=== PATIENT | female | born 1950 | race Caucasian/White ===

== ENCOUNTER 2020-10-17 11:19 | Emergency (ER) | payer OTHER, SELFPAY ==
[2020-10-17 11:26] VITALS: BP 124/69; PULSE 69; RESP 18; TEMP 36.9; O2SAT 96
--- NOTE | 2020-10-17 11:38 | ED.URI ---
HPI - URI/Sore Throat General Chief Complaint: Upper Respiratory Infection Stated Complaint: sore throat Time Seen by Provider: 10/17/20 11:38 Source: patient Mode of arrival: ambulatory Limitations: no limitations History of Present Illness HPI Narrative: Fariba Medina is a 70 yo female with a PMH of high cholesterol, HTN, COPD, lupus, arhritis, who comes to [facility] complaining of sore throat and congestion since Saturday she has tried cough drops and [id number] medication without improvement. Related Data Home Medications Medication Instructions Recorded Confirmed atorvastatin 10 mg tablet 10 mg PO DAILY 01/01/20 10/17/20 bisoprolol fumarate 5 mg tablet 5 mg PO DAILY 01/01/20 10/17/20 cholecalciferol (vitamin D3) PO 01/01/20 fluticasone 250 mcg-salmeterol 50 1 inhalation INHALATION BID 01/01/20 10/17/20 mcg/dose blistr powdr for inhalation tiotropium bromide 2.5 2 inhalation INHALATION QAM 01/01/20 10/17/20 mcg/actuation mist for inhalation hydroxychloroquine 200 mg tablet 200 mg PO BID 04/12/20 10/17/20 Allergies Allergy/AdvReac Type Severity Reaction Status Date / Time No Known Allergies Allergy Verified 04/12/20 08:00 Review of Systems Review of Systems: Narrative: CONSTITUTIONAL: Denies fever, chills, sweats. EYES: Denies visual changes, redness, discharge. ENT: Denies rhinorrhea,has congestion,has sore throat, otalgia. CARDIOVASCULAR: Denies chest pain, palpitations, edema. RESPIRATORY: Denies dyspnea, wheezing, cough GASTROINTESTINAL: Denies abdominal pain, nausea, vomiting, diarrhea. GENITOURINARY: Denies dysuria, hematuria, abnormal discharge SKIN: Denies rash or itching. NEUROLOGIC: Denies numbness, or focal weakness. PSYCHIATRIC: Denies anxiety or depression. [facility] Past Medical History Medical History Arthritis COPD (chronic obstructive pulmonary disease) Lupus Seronegative rheumatoid arthritis of multiple sites (~11/2019) Surgical History Surgical History H/O right knee surgery Family History Family History Mother Lupus Father COPD (chronic obstructive pulmonary disease) Dementia Grandparent Heart disease Sibling No problems noted. Social History Social History Smoking packs per day: 1 Smoking cigarettes per day: 20.0 Years smoked: 40 Smoking pack-years: 40.00 Smoking status: Current every day smoker Tobacco type: cigarettes Alcohol intake: current Gender identity (if verbalized by the patient): Female Comments At time of signature, I agree with nursing past medical, surgical, social and family history. There is no relevant family history pertinent to the presenting complaint. Exam Narrative: Exam Narrative: GENERAL: This is a well-nourished, well-developed patient, in moderate distress. HEAD: normocephalic, atraumatic. EYES: Sclera clear/white. Vision is grossly intact. EARS: External ears normal, a. Hearing grossly intact. NOSE: External nose normal without nasal discharge, nares without redness, no rhinorrhea. THROAT: Mucous membranes moist, posterior pharynx erythema NECK: Neck supple, tender submandibular lymph nodes right worse than left CARDIOVASCULAR: Regular rate and rhythm without murmurs, gallops, or rubs. RESPIRATORY: Wheezing to auscultation, diffuse wheezing all cheung. Breath sounds equal bilaterally. No rales, or rhonchi. GASTROINTESTINAL: Abdomen soft, non-tender, SKIN: warm, intact with no suspicious lesions or rash, good texture and turgor. NEURO: awake, alert, and oriented to person, place and time. There were no obvious focal neurologic abnormalities. Steady gait EXTREMITIES: Normal range of motion. BACK: Nontender without deformity Course Course Emergency Course: Patient comes to [facility]
== END 2020-10-17 12:00 | disposition home or self-care (01) ==
PROVIDERS: Emergency Provider Nurse Practitioner; PCP Internal Medicine
DX: R05 Cough (principal); J02.9 Acute pharyngitis, unspecified; F17.210 Nicotine dependence, cigarettes, uncomplicated; M19.90 Unspecified osteoarthritis, unspecified site; J44.9 Chronic obstructive pulmonary disease, unspecified; M32.9 Systemic lupus erythematosus, unspecified; E78.00 Pure hypercholesterolemia, unspecified; I10 Essential (primary) hypertension; M06.09 Rheumatoid arthritis without rheumatoid factor, multiple sites
CPT/HCPCS: 87081; 87880; 99213; G0463

== ENCOUNTER 2022-04-03 12:20 | Emergency (ER) | payer MEDICARE, SELFPAY ==
--- NOTE | ~2022-04-03 | XR_ITS ---
EXAMINATION: XR chest 2V DATE: 04/03/2022 13:05 INDICATION: Cough and congestion. TECHNIQUE: Frontal and lateral views of the chest were obtained. COMPARISON: None. FINDINGS: There are airspace opacities in the lingula. No pleural effusion or pneumothorax. The heart size is normal. IMPRESSION: 1. Airspace opacities in the lingula, consistent with atelectasis versus pneumonia. Reviewed, dictated and finalized at location A. SPORTATION SPECIALIST IMPRESSION: 1. Airspace opacities in the lingula, consistent with atelectasis versus pneumo luann.
[2022-04-03 12:30] VITALS: BP 164/96; PULSE 92; RESP 16; TEMP 36.4; O2SAT 99
--- NOTE | 2022-04-03 12:50 | ED.URI ---
HPI - URI/Sore Throat General Chief Complaint: Nausea/Vomiting/Diarrhea Stated Complaint: Chest Congestion Time Seen by Provider: 04/03/22 13:05 Source: patient and RN notes reviewed Mode of arrival: ambulatory Limitations: no limitations History of Present Illness HPI Narrative: 71-year-old female presents with concerns for vomiting, soft stools, epigastric discomfort. Reports symptoms started after she had been taking the Zithromax and Augmentin for pneumonia. Reports she was diagnosed with pneumonia, she took an antibiotic, edema pneumonia did not go away so her primary provider prescribed her the Z-Alton and azithromycin. Reports today is the last day of the Z-Alton, she has 1/2 more days of Augmentin. Reports she has had reaction to antibiotics like this before. She reports she is able to tolerate some fluids and food. She reports she cannot get in to her primary care doctor this week, she has a scheduled follow-up chest x-ray and CT scan. MD elicited complaint: cough and other (Nausea vomiting) Related Data Home Medications Medication Instructions Recorded Confirmed atorvastatin 10 mg tablet 10 mg PO DAILY 01/01/20 04/03/22 tiotropium bromide 2.5 2 inhalation inhalation QAM 01/01/20 04/03/22 mcg/actuation mist for inhalation (Spiriva Respimat) hydroxychloroquine 200 mg tablet 200 mg PO BID 04/12/20 04/03/22 (Plaquenil) Allergies Allergy/AdvReac Type Severity Reaction Status Date / Time codeine AdvReac Vomiting Verified 04/03/22 12:44 Review of Systems Review of Systems: CONSTITUTIONAL: Reports malaise. Denies chills, sweats, or fever. ENT: Denies rhinorrhea, congestion, sinus pain, otalgia or sore throat. CARDIOVASCULAR: Denies chest pain, palpitations, or edema. RESPIRATORY: Denies cough or dyspnea. GASTROINTESTINAL: Reports epigastric abdominal pain, nausea, vomiting, loose stool. Denies diarrhea, bloody, or mucous stools. MUSCULOSKELETAL: Denies myalgia. NEUROLOGIC: Denies headache. All systems reviewed & are unremarkable except as noted in HPI and below PMFSH Past Medical History Medical History Arthritis COPD (chronic obstructive pulmonary disease) Lupus Seronegative rheumatoid arthritis of multiple sites (~11/2019) Surgical History Surgical History H/O right knee surgery Family History Family History Mother Lupus Father COPD (chronic obstructive pulmonary disease) Dementia Grandparent Heart disease Sibling No problems noted. Social History Social History Smoking packs per day: 1 Smoking cigarettes per day: 20.0 Years smoked: 40 Smoking pack-years: 40.00 Smoking status: Current every day smoker Tobacco type: cigarettes Alcohol intake: current Alcohol use details: socially Gender identity (if verbalized by the patient): Female Comments At time of signature, agree with nursing past medical, surgical, social and family history. There is no relevant family history pertinent to the presenting complaint Exam Narrative: GENERAL: Nontoxic-appearing and in no acute distress. HEAD: Normocephalic, atraumatic. EYES: PERRLA, conjunctivae clear, and EOMI. ENT: Nares clear. Mucous membranes moist. NECK: Supple. No lymphadenopathy CHEST: Speaks in full sentences. No respiratory distress. HEART: Regular rate and rhythm. ABDOMEN: Soft, flat, nondistended. Mild epigastric tenderness.. No guarding, rebound tenderness, or rigidity. No pulsatile masses. Bowel sounds present in all four quadrants. No organomegaly. Negative Quintana?s sign. No periumbilical tenderness. No Supra public tenderness or distension. Good femoral pulses bilaterally. No hernia noted. No scars or surface trauma. SKIN: Warm, dry, no rash. NEURO: Alert and oriented x3. PSYCH: No
[2022-04-03] MEDS: ONDANSETRON HCL ODT 4 MG TABLET PO (13:14)
[2022-04-03] MEDS: LIDOCAINE HCL 2% VISC SOLN 15 ML UDC PO (13:33)
[2022-04-03] MEDS: MAG HYDROX/AL HYDROX/SIMETH 30 ML UDC PO (13:33)
== END 2022-04-03 14:23 | disposition home or self-care (01) ==
PROVIDERS: Emergency Provider Nurse Practitioner; PCP Internal Medicine
DX: R11.2 Nausea with vomiting, unspecified (principal); J44.9 Chronic obstructive pulmonary disease, unspecified; F17.210 Nicotine dependence, cigarettes, uncomplicated
CPT/HCPCS: 71046; 99213; A9270; G0463

== ENCOUNTER 2022-10-18 09:06 | Emergency (ER) | payer MEDICARE, SELFPAY ==
[2022-10-18 09:20] VITALS: BP 156/85; PULSE 74; RESP 16; TEMP 36.5; O2SAT 99
--- NOTE | 2022-10-18 09:45 | ED.NAVMDI ---
HPI - Nausea/Vomiting/Diarrhea General Chief complaint: Nausea/Vomiting/Diarrhea Stated complaint: Diarrhea Source: patient and RN notes reviewed History of Present Illness HPI Narrative: A 72-year-old female presents to urgent care with diarrhea x2 weeks. Pt states she thought it was getting better but last night she went on herself. Pt states she has been slightly nauseated but denies any vomiting. Pt denies any abdominal pain, fevers, chills, dizziness, chest pain, or SOB. Pt has taken Imodium and Pepto Bismol without relief. Pt states she has tried getting into her PCP, but he will not see diarrhea, according to pt. Related Data Home Medications Medication Instructions Recorded Confirmed tiotropium bromide 2.5 2 inhalation inhalation QAM 01/01/20 04/03/22 mcg/actuation mist for inhalation (Spiriva Respimat) hydroxychloroquine 200 mg tablet 200 mg PO BID 04/12/20 04/03/22 (Plaquenil) atorvastatin 20 mg tablet mg 10/18/22 bisoprolol fumarate 5 mg tablet mg 10/18/22 hydroxychloroquine 200 mg tablet mg PO 10/18/22 losartan 25 mg tablet mg 10/18/22 10/18/22 omeprazole 20 mg capsule,delayed mg 10/18/22 release tiotropium 2.5 mcg-olodaterol 2.5 inhalation 10/18/22 mcg/actuation mist for inhalation (Stiolto Respimat) Allergies Allergy/AdvReac Type Severity Reaction Status Date / Time codeine AdvReac Vomiting Verified 10/18/22 09:22 Review of Systems Review of Systems: Pertinent positives and pertinent negatives per HPI. [facility] Past Medical History Medical History Arthritis COPD (chronic obstructive pulmonary disease) Lupus Seronegative rheumatoid arthritis of multiple sites (~11/2019) Surgical History Surgical History H/O right knee surgery Family History Family History Mother Lupus Father COPD (chronic obstructive pulmonary disease) Dementia Grandparent Heart disease Sibling No problems noted. Social History Social History Smoking packs per day: 1 Smoking cigarettes per day: 20.0 Years smoked: 40 Smoking pack-years: 40.00 Smoking status: Current every day smoker Tobacco type: cigarettes Alcohol intake: current Alcohol use details: socially Gender identity (if verbalized by the patient): Female Comments At the time of my signature, I reviewed and agree with the nursing past medical, surgical, social, and family history. There is no relevant family history pertinent to the patient complaint. Exam Narrative: GENERAL: This is a well-nourished, well-developed patient, in no apparent distress. HEAD: normocephalic, atraumatic. EYES: Sclera clear/white. Vision is grossly intact. EARS: External ears normal, auditory canals clear and without drainage. Hearing grossly intact. NOSE: External nose normal with no obvious nasal discharge, nares without redness, no rhinorrhea. THROAT: Mucous membranes moist, posterior pharynx clear. NECK: Neck supple, non-tender without lymphadenopathy, masses or thyromegaly. CARDIOVASCULAR: Regular rate and rhythm without murmurs, gallops, or rubs. RESPIRATORY: Clear to auscultation. Breath sounds equal bilaterally. No wheezes, rales, or rhonchi. GASTROINTESTINAL: Abdomen soft, non-tender, nondistended. Bowel sounds are active. No hepato-splenomegaly, or palpable masses. No guarding. SKIN: warm, intact with no suspicious lesions or rash, good texture and turgor. NEURO: awake, alert, and oriented to person, place and time. There were no obvious focal neurologic abnormalities. Course Course Level of Care: Express Care Visit Vital Signs Vital signs: Vital Signs Temperature 97.7 F 10/18/22 09:20 Pulse Rate 74 10/18/22 09:20 Respiratory Rate 16 10/18/22 09:20 Blood Pressure 156/85 H 10/18
== END 2022-10-18 09:50 | disposition home or self-care (01) ==
PROVIDERS: Emergency Provider Nurse Practitioner Family; PCP Internal Medicine
DX: K52.9 Noninfective gastroenteritis and colitis, unspecified (principal); F17.210 Nicotine dependence, cigarettes, uncomplicated; M19.90 Unspecified osteoarthritis, unspecified site; J44.9 Chronic obstructive pulmonary disease, unspecified; M06.09 Rheumatoid arthritis without rheumatoid factor, multiple sites
CPT/HCPCS: 99211; G0463

== ENCOUNTER 2023-09-26 09:48 | Emergency (ER) | payer MEDICARE, SELFPAY ==
--- NOTE | ~2023-09-26 | XR_ITS ---
Clinical Indication: Shortness of breath PA and lateral views of the chest: Comparison: 04/03/2022 Findings: The lungs are clear, without evidence of focal consolidation or pleural effusion. Cardiome diastinal silhouette is within normal limits. Bones and soft tissues are unremarkable. Impression: Clear lungs. Possible COPD. Reviewed, dictated and finalized at location . Impression: Clear lungs. Possible COPD.
--- NOTE | 2023-09-26 09:50 | ED.URI ---
HPI - URI/Sore Throat General Chief Complaint: Upper Respiratory Infection Stated Complaint: Upper respiratory Time Seen by Provider: 09/26/23 09:50 Source: patient Mode of arrival: ambulatory Limitations: no limitations History of Present Illness HPI Narrative: Patient is a 73-year-old female who presents with 2 days of cough, body aches, headache shortness shortness of breath. Patient had fever 102 yesterday. Patient has history of pneumonia and collapsed lung. Related Data Home Medications Medication Instructions Recorded Confirmed hydroxychloroquine 200 mg tablet 200 mg PO BID 04/12/20 09/26/23 (Plaquenil) atorvastatin 20 mg tablet 20 mg PO DAILY 10/18/22 09/26/23 bisoprolol fumarate 5 mg tablet 5 mg PO DAILY 10/18/22 09/26/23 tiotropium 2.5 mcg-olodaterol 2.5 2 puff inhalation BID 10/18/22 09/26/23 mcg/actuation mist for inhalation (Stiolto Respimat) budesonide 3 mg 3 mg PO DAILY 09/26/23 09/26/23 capsule,delayed,extended release famotidine 40 mg tablet 40 mg PO DAILY 09/26/23 09/26/23 Allergies Allergy/AdvReac Type Severity Reaction Status Date / Time codeine AdvReac Vomiting Verified 10/18/22 09:22 Review of Systems Review of Systems: All systems reviewed & are unremarkable except as noted in HPI and below Constitutional: Constitutional: Reports body ache(s), Denies chills, Denies fatigue, Denies fever(s), Reports headache(s), Denies malaise and Denies weakness Eyes: Eyes: Denies blurry vision, Denies itchy eyes and Denies loss of vision ENT: Denies otalgia, Denies headache(s), Reports nasal congestion, Denies sinus pain and Denies sore throat Cardiovascular: Cardiovascular: Denies chest pain, Denies irregular heart rhythm and Reports dyspnea Respiratory: Respiratory: Reports cough and Reports dyspnea Gastrointestinal: Gastrointestinal: Denies abdominal pain, Denies diarrhea, Denies nausea and Denies vomiting Musculoskeletal: Musculoskeletal: Denies back pain, Reports myalgias and Denies arthralgias Integumentary/Breasts: Skin/Breast: Denies pruritus and Denies rash Neurologic: Reports headache(s), Denies loss of vision and Denies weakness Psychiatric: Psychiatric: Reports no additional psychiatric complaints Endocrine: Endocrine: Denies fatigue Allergic/Immunologic: Allergic/Immunologic: Denies itchy eyes PMFSH Past Medical History Medical History Arthritis COPD (chronic obstructive pulmonary disease) Lupus Seronegative rheumatoid arthritis of multiple sites (~11/2019) Surgical History Surgical History H/O right knee surgery Family History Family History Mother Lupus Father COPD (chronic obstructive pulmonary disease) Dementia Grandparent Heart disease Sibling No problems noted. Social History Social History Smoking packs per day: 1 Smoking cigarettes per day: 20.0 Years smoked: 40 Smoking pack-years: 40.00 Smoking status: Current every day smoker Tobacco type: cigarettes Alcohol intake: current Alcohol use details: socially Gender identity (if verbalized by the patient): Female Comments At time of signature, agree with nursing past medical, surgical, social and family history. There is no relevant family history pertinent to the presenting complaint. Exam Const: General: cooperative, healthy appearing, comfortable, no acute distress and well nourished Nutritional Appearance: well nourished Orientation/consciousness: patient oriented x3 Limitations: no limitations HENMT: Head: normal to inspection, normocephalic and atraumatic Ears: hearing grossly normal bilaterally, external ears normal, TM's normal bilaterally, EAC's normal and no periauricular adenopathy Face/Nose/Sinus: Normal external nose present, Normal na
[2023-09-26 10:21] VITALS: BP 142/80; PULSE 82; RESP 18; TEMP 36.5; O2SAT 96
== END 2023-09-26 11:07 | disposition home or self-care (01) ==
PROVIDERS: Emergency Provider Nurse Practitioner Family; PCP Internal Medicine
DX: U07.1 COVID-19 (principal); M32.9 Systemic lupus erythematosus, unspecified; F17.210 Nicotine dependence, cigarettes, uncomplicated
CPT/HCPCS: 71046; 87426; 87804; 99213; G0463

== ENCOUNTER → 2025-02-25 14:39 | Outpatient (CLI) | payer MEDICARE, SELFPAY ==
--- NOTE | ~2025-02-25 | XR_ITS ---
EXAMINATION: XR chest 2V, 02/25/2025 15:05 CDT HISTORY: G62.9 COMPARISON: No comparisons available. Technique: 2 views obtained. Findings: Small lingular infiltrate. No pneumothorax. Heart is normal size. Mediastinal and hilar contours are within normal limits. Bony thorax no acute abnormality. Impression: Small left lingular pneumonia Reviewed, dictated and finalized at location P. Impression: Small left lingular pneumonia
== END ==
PROVIDERS: PCP Internal Medicine
DX: G62.9 Polyneuropathy, unspecified (principal); J18.9 Pneumonia, unspecified organism
CPT/HCPCS: 71046